=== PATIENT | male | born 1985 | race Caucasian/White ===

== ENCOUNTER → 2021-09-03 17:57 | Outpatient (CLI) | payer OTHER, SELFPAY ==
--- NOTE | 2021-09-03 18:04 | DI.RAD.S_ITS ---
PROCEDURE: XR ANKLE LT MIN 3V INDICATIONS: L ankle inversion injury, lateral edema, medial mal tender TECHNIQUE: 3 views of the ankle were acquired. COMPARISON: None. FINDINGS: Bones: No acute fractures or dislocations. Ankle mortise is normally aligned. No suspicious bony lesions. Tiny retrocalcaneal enthesophyte. Soft tissues: No tibiotalar joint effusion. Achilles tendon appears normal. Moderate lateral malleolar soft tissue swelling. IMPRESSION: Moderate lateral malleolar soft tissue swelling. No underlying fracture or dislocation. If there is persistent clinical concern for occult fracture given adequate mechanism of injury, consider repeat imaging in 10-14 days. Dictated by: Prasad Salinas M.D. on 09/03/2021 at 17:15 Approved by: Prasad Salinas M.D. on 09/03/2021 at 17:15
== END ==
PROVIDERS: Referring Provider Physician Assistant; Visit Provider Physician Assistant
DX: S99.912A Unspecified injury of left ankle, initial encounter (principal); M79.89 Other specified soft tissue disorders; X58.XXXA Exposure to other specified factors, initial encounter
CPT/HCPCS: 73610

== ENCOUNTER 2023-02-14 10:34 | Emergency (ER) | payer OTHER, SELFPAY ==
[2023-02-14 11:09] VITALS: BP 135/79; PULSE 80; RESP 14; TEMP 36.7; O2SAT 99; BMI 27.2
--- NOTE | 2023-02-14 11:18 | ED_ITS ---
HPI - Skin/Abscess/Foreign Bdy <Camilo Booth PA-C - Last Filed: 02/14/23 15:42> General Chief complaint: Skin/Abscess/Foreign Body Stated complaint: metal piece stuck inside finger, swelling Time Seen by Provider: 02/14/23 11:14 Source: patient Mode of arrival: Ambulatory Limitations: no limitations History of Present Illness HPI narrative: 37-year-old male with no reported past medical history presents to the ED with a wound to the right pointer finger for 1 month. Patient states that he felt a sharp poke when he was reaching between the seats in his car looking for something, felt like he was appears way sharp object. Since then patient states that the injury site has been painful, he has noted purulence and is painful. Patient is concerned that perhaps there is some retained piece of metal in his finger. Patient denies fever, chills, nausea, vomiting, numbness, tingling, weakness. Patient endorses full range of motion of all fingers. Last tetanus is unknown. Related Data Previous Rx's Medication Instructions Recorded cephalexin 500 mg capsule 500 mg PO TID 5 days #15 caps 02/14/23 Allergies Allergy/AdvReac Type Severity Reaction Status Date / Time No Known Drug Allergies Allergy Verified 02/14/23 11:12 Review of Systems <Camilo Booth PA-C - Last Filed: 02/14/23 15:42> Review of Systems ROS Unobtainable: All systems reviewed & are unremarkable except as noted in HPI and below Constitutional Constitutional: Denies chills, Denies fatigue, Denies fever(s), Denies frequent falls, Denies lethargy and Denies weakness Eyes Eyes: Denies change in vision, Denies eye discharge, Denies irritation and Denies loss of vision ENT Ears, Nose, Mouth, and Throat: Denies change in voice, Denies dizziness, Denies neck pain, Denies sore throat and Denies throat swelling Cardiovascular Cardiovascular: Denies chest pain, Denies irregular heart rhythm, Denies lightheadedness, Denies palpitations, Denies dyspnea, Denies dyspnea on exertion and Denies orthopnea Respiratory Respiratory: Denies cough, Denies dyspnea, Denies dyspnea on exertion and Denies wheezing Gastrointestinal Gastrointestinal: Denies abdominal pain, Denies change in bowel habits, Denies diarrhea, Denies nausea and Denies vomiting Genitourinary Genitourinary: Denies hematuria, Denies flank pain, Denies urinary incontinence and Denies urinary urgency Musculoskeletal Musculoskeletal: Denies back pain, Denies muscle weakness, Denies neck pain, Denies numbness and Denies tingling Integumentary/Breasts Skin/Breast: Denies pruritus, Denies erythema, Denies rash and Reports wounds Comments: Purulent discharge from the wound on right pointer finger Neurologic Neurologic: Denies behavioral changes, Denies confusion, Denies dizziness, Denies frequent falls, Denies loss of vision, Denies numbness, Denies tingling and Denies weakness Psychiatric Psychiatric: Denies anxiety, Denies behavioral changes, Denies confusion, Denies depression, Denies homicidal ideation and Denies suicidal ideation Endocrine Endocrine: Denies fatigue, Denies flushing and Denies palpitations Hematologic/Lymphatic Hematologic/Lymphatic: Denies easy bruising Allergic/Immunologic Allergic/Immunologic: Denies urticaria, Denies throat swelling and Denies wheezing Patient History <Camilo Booth PA-C - Last Filed: 02/14/23 15:42> Social History Smoking Status: Former smoker Smoking Status: Former smoker alcohol intake frequency: 3 or more drinks per day Substance Use Type: does not use Exam <Camilo Booth PA-C - Last Filed: 02/14/23 15:42> Narrative Exam Narrative: Const General:?cooperative, healthy appearing and comfortable [facility] Head:?normal to inspection Ears:?hearing grossly normal bilaterally Nose:?external nose normal Face and sinus:?normal facial exam and sinuses nontender Mouth:?oral mucosae normal Throat:?posterior oropharynx normal Eyes General:?appearance normal, both eyes and all related structures Neck Neck:?normal visual inspection and no lymphadenopathy noted Resp Effort & Inspection:?normal respiratory effort Auscultation:?clear to auscultation bilaterally Cardio Rate:?regular rate Rhythm:?regular rhythm Integumentary There is a small wound on the palmar aspect of the right pointer finger, with some induration and fluctuance. Tender to palpation. No erythema. Neuro General:?patient alert, patient awake and patient oriented x3 Initial Vital Signs Initial Vital Signs: Vital Signs Temperature 98.1 F 02/14/23 11:09 Pulse Rate 80 02/14/23 11:09 Respiratory Rate 14 02/14/23 11:09 Blood Pressure 135/79 02/14/23 11:09 Pulse Oximetry 99 02/14/23 11:09 Oxygen Delivery Method Room Air 02/14/23 11:09 <Araceli Kan DO - Last Filed: 02/16/23 07:31> Initial Vital Signs Initial Vital Signs: Vital Signs Temperature 98.1 F 02/14/23 11:09 Pulse Rate 80 02/14/23 11:09 Respiratory Rate 14 02/14/23 11:09 Blood Pressure 135/79 02/14/23 11:09 Pulse Oximetry 99 02/14/23 11:09 Oxygen Delivery Method Room Air 02/14/23 11:09 Procedures <Camilo Booth PA-C - Last Filed: 02/14/23 15:42> Abscess I/D I&D #1: Site: hand Side (if applicable): right Sedation/analgesia: none Local Anesthetic: other anesthetic (none) Technique: needle aspiration Amount of fluid expressed (mL): 0.1 Irrigation: No Packing used?: none Course <Camilo Booth PA-C - Last Filed: 02/14/23 15:42> Orders Ordered: Discontinued Medications Diphtheria/Tetanus/Acell Pertussis (Tet,Diph,Pertuss(Acell),Vac/Pf 0.5 Ml Syringe) 0.5 ml IM .ONCE ONE Stop: 02/14/23 11:25 Last Admin: 02/14/23 12:14 Dose: 0.5 ml Documented By: CTS Vital Signs Vital signs: Vital Signs - 8 hr 02/14/23 11:09 Temperature 98.1 F Pulse Rate 80 Respiratory Rate 14 Blood Pressure 135/79 Pulse Oximetry 99 Oxygen Delivery Method Room Air <Araceli Kan DO - Last Filed: 02/16/23 07:31> Orders Ordered: Discontinued Medications Diphtheria/Tetanus/Acell Pertussis (Tet,Diph,Pertuss(Acell),Vac/Pf 0.5 Ml Syringe) 0.5 ml IM .ONCE ONE Stop: 02/14/23 11:25 Last Admin: 02/14/23 12:14 Dose: 0.5 ml Documented By: CTS Vital Signs Vital signs: Vital Signs - 8 hr 02/14/23 11:09 Temperature 98.1 F Pulse Rate 80 Respiratory Rate 14 Blood Pressure 135/79 Pulse Oximetry 99 Oxygen Delivery Method Room Air MDM - Skin/Abscess/Foreign Bdy <Camilo Booth PA-C - Last Filed: 02/14/23 15:42> [facility] Narrative Medical decision making narrative: 37-year-old male with no reported past medical history presents to the ED with a wound to the right pointer finger for 1 month. Concern for retained foreign object versus cellulitis versus abscess versus other. Will obtain x-ray, update tetanus. Will reassess. X-ray with no radiopaque foreign bodies identified, no acute osseous abnormality. No purulence expressed via needle aspiration. A wound culture was obtained. Prescribed antibiotics. ED return precautions discussed with patient. Patient verbalized understanding. Medical records reviewed: Yes Discharge Plan Departure Patient Disposition: Home Clinical Impression: Cellulitis Instructions: DI for Cellulitis -- Adult Activity Restrictions/Additional Instructions: You were evaluated in the ED today for a finger wound. The x-ray did not show any retained foreign bodies. Discharge from your wound has been sent for wound culture and you are being started on an antibiotic. Please complete the full dose of antibiotics as prescribed. We will call you if the culture results require us to change your antibiotics. Your tetanus has also been updated today. Please return to the ED via worsening symptoms, fever, chills, nausea, vomiting. Prescriptions: New cephalexin 500 mg capsule 500 mg PO TID 5 Days Qty: 15 0RF Referrals: Miscellaneous,Doctor[facility] [Primary Care Provider] - Stand Alone Forms: Patient Portal/API <Araceli Kan DO - Last Filed: 02/16/23 07:31> Cosign ED Attending Miguel Attestation: I was immediately available in the department for consultation. Documentation has been reviewed.
--- NOTE | 2023-02-14 11:23 | DI.RAD.S_ITS ---
PROCEDURE: XR FINGER RT MIN 2V INDICATIONS: suspect metallic foreign body TECHNIQUE: AP hand, 2 views of the 3rd finger(s) acquired. COMPARISON: [facility], ASHANTI, AMRISELA LT, 04/21/2007, 14:03. FINDINGS: Bones: No fractures or dislocations. No suspicious bony lesions. Soft tissues: No suspicious soft tissue calcifications. IMPRESSION: No acute osseous abnormality. No radiopaque foreign bodies are identified. Dictated by: Raj Kirkpatrick M.D. on 02/14/2023 at 11:58 Approved by: Raj Kirkpatrick M.D. on 02/14/2023 at 11:59
[2023-02-14] MEDS: TET,DIPH,PERTUSS(ACELL),VAC/PF 0.5 ML SYRINGE IM (12:14)
--- NOTE | 2023-02-14 12:28 | PC.NURSE ---
No radio opacity found on XR. Hyma, PAC in room for US of R 2nd digit. tetanus updated at this visit. tolerating well.
== END 2023-02-14 12:41 | disposition home or self-care (01) ==
PROVIDERS: Emergency Provider Student in an Organized Health Care Education/Training Program
DX: L03.011 Cellulitis of right finger (principal); L02.511 Cutaneous abscess of right hand; Z23 Encounter for immunization
CPT/HCPCS: 10060; 73140; 87070; 87075; 87077; 87147; 87186; 87205; 90471; 99283; 90715

== ENCOUNTER 2024-02-20 18:27 | Emergency (ER) | payer OTHER, SELFPAY ==
[2024-02-20 18:42] VITALS: BP 135/77; PULSE 109; RESP 16; TEMP 35.9; O2SAT 96; BMI 29.4
[2024-02-20 19:13] LABS: Add Manual Diff / Slide Review NO; Basophils Absolute Auto 0 /uL (0-100); Basophils Percent Auto 0.3 % (0-2); Eosinophils Absolute Auto 0 /uL (0-450); Eosinophils Percent Auto 0.1 % (2-4); Hemoglobin 14.9 g/dL (13.5-17.5); Lymphocytes Absolute Auto 1200 /uL (1100-4500); Lymphocytes Percent Auto 9.8 % (25-40); Mean Corpuscular HGB Conc 33.9 % (30-36); Mean Corpuscular Hemoglobin 30.1 PG (26-34); Mean Corpuscular Volume 88.5 fL (80-100); Monocytes Absolute Auto 1100 /uL (0-900); Monocytes Percent Auto 8.9 % (3-14); Neutrophils Absolute Auto 10100 /uL (1500-7000); Neutrophils Percent Auto 80.9 % (50-75); Platelet Count 332 X10^3/uL (150-400); Red Blood Cell Count 4.97 X10^6/uL (4.5-5.9); Red Cell Distribution Width 13.7 % (11.6-14.8); White Blood Cell Count 12.5 X10^3/uL (4.5-11.0)
[2024-02-20 19:22] LABS: Alanine Aminotransferase 86 IU/L (<50); Albumin 4.8 g/dL (3.5-5.0); Albumin Globulin Ratio 1.5 (1.0-2.8); Alkaline Phosphatase 91 U/L (38-126); Aspartate Aminotransferase 63 IU/L (17-59); BUN Creatinine Ratio 13.8 (6-22); Bilirubin Total 0.7 mg/dL (0.2-1.3); Blood Urea Nitrogen 11 mg/dL (9-20); Calcium 9.1 mg/dL (8.4-10.2); Carbon Dioxide 22 mmol/L (22-32); Chloride 104 mmol/L (98-107); Estimated Glomerular Filt Rate > 60 mL/min (>60); Globulin 3.1 g/dL (1.7-4.1); Glucose 103 mg/dL (70-100); HEMOLYSIS 25 (0-50); Lipase 43 U/L (23-300); Sodium 138 mmol/L (137-145); Total Protein 7.9 g/dL (6.3-8.2)
[2024-02-20 20:16] LABS: Ammonia (NH3) < 9 umol/L (9-30)
[2024-02-20 20:36] VITALS: BP 130/75; PULSE 109; RESP 18; O2SAT 95
[2024-02-20 22:44] VITALS: PULSE 101; O2SAT 96
[2024-02-20 23:00] VITALS: PULSE 99; O2SAT 94
--- NOTE | 2024-02-20 23:11 | DI.CT.S_ITS ---
PROCEDURE: CT PELVIS W CON INDICATIONS: Perianal abscess suspected TECHNIQUE: After the administration of intravenous contrast, 5 mm thick sections acquired from the iliac crests to the symphysis. 5 mm coronal and sagittal reformats were acquired. For radiation dose reduction, the following was used: automated exposure control, adjustment of mA and/or kV according to patient size. COMPARISON: None. FINDINGS: Image quality: Diagnostic. PELVIS: Peritoneum and Bowel: Bowel loops demonstrate normal wall thickness and caliber. No free fluid or air. Stool ball in the rectum measuring 7 x 6.4 cm. Normal appendix. Pelvic Organs: No pelvic mass. Bladder: Normal wall thickness, accounting for underdistension. No perivesicular fat stranding. Pelvic Nodes: No enlarged lymph nodes. Miscellaneous: No inguinal hernias are seen. atherosclerotic vascular calcifications. Bones: No aggressive osseous abnormality. IMPRESSION: Stool ball in the rectum measuring 7 cm, recommend correlation for impaction. No perianal abscess is seen. Dictated by: Raj Kirkpatrick M.D. on 02/20/2024 at 23:35 Approved by: Raj Kirkpatrick M.D. on 02/20/2024 at 23:37
--- NOTE | 2024-02-20 23:16 | ED_ITS ---
HPI - Abdominal Pain General Chief Complaint: Abdominal Pain Stated Complaint: Constipated 2 days, severe abd pain Time Seen by Provider: 02/20/24 22:47 Source: patient Mode of arrival: Ambulatory History of Present Illness HPI narrative: This is a 38-year-old male here with 24 hours or rectal pain states he has not had bowel movement in 2 days. He has not typically have problems with constipation, there has been no rectal trauma not having abdominal pain fevers or vomiting. Pain does not seem to localize to particular area around rectum. No previous abdominal surgeries no history of inflammatory bowel disease. States that he is previously healthy does admit to 3-4 drinks a day and has had no prior abdominal or rectal surgeries. Said he is her on an enema at home without results. Related Data Previous Rx's Medication Instructions Recorded doxycycline hyclate 100 mg tablet 100 mg PO BID #20 tabs 02/18/23 hydrocortisone acetate 25 mg 25 mg OR BID #12 ea 02/20/24 rectal suppository (Anusol-HC) lactulose 10 gram/15 mL oral 10 g (15 mL) PO DAILY PRN 02/20/24 solution constipation #237 mL Allergies Allergy/AdvReac Type Severity Reaction Status Date / Time No Known Drug Allergies Allergy Verified 02/14/23 11:12 Patient History Social History Smoking Status: Former smoker Smoking Status: Former smoker alcohol intake frequency: 3 or more drinks per day Substance Use Type: does not use Exam Initial Vital Signs Initial Vital Signs: Vital Signs Temperature 96.7 F L 02/20/24 18:42 Pulse Rate 109 H 02/20/24 18:42 Respiratory Rate 16 02/20/24 18:42 Blood Pressure 135/77 02/20/24 18:42 Pulse Oximetry 96 02/20/24 18:42 Oxygen Delivery Method Room Air 02/20/24 18:42 Mild tachycardia noted he is afebrile Const Other: Appears older than his stated age, has alcohol on his breath Neck Other: Supple Resp Other: Normal respiratory effort Cardio Other: Heart sounds are normal tachycardic GI Other: Abdomen flat and soft normal bowel sounds abdomen is nontender. On rectal exam there is stool in the vault, does not seem to be particularly hurt a known hemorrhoid or anal fissure. Does report significant tenderness during the rectal exam. Course Orders Ordered: ED Orders 02/20/24 18:55 Complete Blood Count AUTO DIFF Stat Comprehensive Metabolic Panel Stat Lipase Stat 02/20/24 19:55 Ammonia (NH3) Stat 02/20/24 23:11 CT pelvis w con Stat Vital Signs Vital signs: Vital Signs - 8 hr 02/20/24 18:42 02/20/24 20:36 02/20/24 22:44 Temperature 96.7 F L Pulse Rate 109 H 109 H 101 H Respiratory Rate 16 18 Blood Pressure 135/77 130/75 Pulse Oximetry 96 95 96 Oxygen Delivery Method Room Air Room Air 02/20/24 23:00 Temperature Pulse Rate 99 H Respiratory Rate Blood Pressure Pulse Oximetry 94 Oxygen Delivery Method Room Air MDM - Abdominal Pain Lab Data Lab results narrative: CBC shows a mild leukocytosis, chemistries are unremarkable with a minimal and not clinically significant elevation in transaminases 02/20/24 18:55 02/20/24 18:55 Labs: Lab Results 02/20/24 02/20/24 Range/Units 18:55 19:55 WBC 12.5 H (4.5-11.0) X10^3/uL RBC 4.97 (4.5-5.9) X10^6/uL Hgb 14.9 (13.5-17.5) g/dL Hct 44.0 (41-53) % MCV 88.5 (80-100) fL MCH 30.1 (26-34) PG MCHC 33.9 (30-36) % RDW 13.7 (11.6-14.8) % Plt Count 332 (150-400) X10^3/uL Neut % (Auto) 80.9 H (50-75) % Lymph % (Auto) 9.8 L (25-40) % [place] % (Auto) 8.9 (3-14) % Eos % (Auto) 0.1 L (2-4) % Baso % (Auto) 0.3 (0-2) % Neut # (Auto) 81055 H (2658-7327) /uL Lymph # (Auto) 1200 (6388-4461) /uL [place] # (Auto) 1100 H (0-900) /uL Eos # (Auto) 0 (0-450) /uL Baso # (Auto) 0 (0-100) /uL Sodium 138 (137-145) mmol/L Potassium 4.0 (3.4-5.1) mmol/L Chloride 104 (98-107) mmol/L Carbon Dioxide 22 (22-32) mmol/L BUN 11 (9-20) mg/dL Creatinine 0.80 (0.66-1.25) mg/dL Estimated GFR > 60 (>60) mL/min BUN/Creatinine Ratio 13.8 (6-22) Glucose 103 H (70-100) mg/dL Calcium 9.1 (8.4-10.2) mg/dL Total Bilirubin 0.7 (0.2-1.3) mg/dL AST 63 H (17-59) IU/L ALT 86 H (<50) IU/L Alkaline Phosphatase 91 (38-126) U/L Ammonia < 9 L (9-30) umol/L Total Protein 7.9 (6.3-8.2) g/dL Albumin 4.8 (3.5-5.0) g/dL Globulin 3.1 (1.7-4.1) g/dL Albumin/Globulin Ratio 1.5 (1.0-2.8) Lipase 43 (23-300) U/L ABG Data Interpretation: Independent review CT of the pelvis, stool in the rectal vault, no perianal or perirectal abscess Imaging Data CT scan - abdomen/pelvis: Radiologist's Impression: [place] [address] CT Scan Report Signed Patient: Stanton Nicholas MR#: [id number] : 1985 Acct:[id number] Age/Sex: 38 / M Date of Service: 02/20/24 Loc: ED Accession Number: [id number] Procedure: CT pelvis w con Ordering Provider: Patrick Maya MD PROCEDURE: CT PELVIS W CON INDICATIONS: Perianal abscess suspected TECHNIQUE: After the administration of intravenous contrast, 5 mm thick sections acquired from the iliac crests to the symphysis. 5 mm coronal and sagittal reformats were acquired. For radiation dose reduction, the following was used: automated exposure control, adjustment of mA and/or kV according to patient size. COMPARISON: None. FINDINGS: Image quality: Diagnostic. PELVIS: Peritoneum and Bowel: Bowel loops demonstrate normal wall thickness and caliber. No free fluid or air. Stool ball in the rectum measuring 7 x 6.4 cm. Normal appendix. Pelvic Organs: No pelvic mass. Bladder: Normal wall thickness, accounting for underdistension. No perivesicular fat stranding. Pelvic Nodes: No enlarged lymph nodes. Miscellaneous: No inguinal hernias are seen. atherosclerotic vascular calcifications. Bones: No aggressive osseous abnormality. IMPRESSION: Stool ball in the rectum measuring 7 cm, recommend correlation for impaction. No perianal abscess is seen. Dictated by: Raj Kirkpatrick M.D. on 02/20/2024 at 23:35 Approved by: Raj Kirkpatrick M.D. on 02/20/2024 at 23:37 MDM Narrative Medical decision making narrative: 38-year-old male presenting with rectal pain. Has significant tenderness there, differential includes constipation/fecal impaction, perianal abscess rectal trauma anal fissure. Berg is not seen on exam with a hemorrhoid. On rectal exam he is significant tenderness he has soft stool which I believe he should be able to pass. I have ordered an enema and prescribed lactulose as well as Anusol HC suppositories. Discharge Plan Departure Patient Disposition: Home Clinical Impression: Acute constipation Activity Restrictions/Additional Instructions: We are seeing today for constipation. I have written a prescription for lactulose week you can use daily until your stooling regularly. For your anal irritation I have written a prescription for Anusol HC suppositories, apply these twice daily until your anal pain subsides. Get adequate fluids and fiber in your diet to keep her bowels regular. Metamucil is a good fiber supplement that you can use. Additionally, gentle cleansing after bowel movement can be helpful. If you are having increasing pain fevers or vomiting recheck in the emergency department. Follow up soon with your primary care provider Prescriptions: New lactulose 10 gram/15 mL solution 10 g PO DAILY PRN (Reason: constipation) Qty: 237 0RF hydrocortisone acetate [Anusol-HC] 25 mg suppository 25 mg OR BID Qty: 12 0RF No Action doxycycline hyclate 100 mg tablet 100 mg PO BID Qty: 20 0RF Referrals: Barbie Phillips MD [Primary Care Provider] - Stand Alone Forms: Patient Portal/API
[2024-02-20 23:30] VITALS: PULSE 100; O2SAT 96
[2024-02-21] VITALS (7 sets, daily range): BP systolic 118–124; BP diastolic 56–75; PULSE 85–106; O2SAT 94–97
== END 2024-02-21 01:14 | disposition home or self-care (01) ==
PROVIDERS: Emergency Medicine; Emergency Provider Emergency Medicine; PCP Family Medicine
DX: K59.00 Constipation, unspecified (principal)
CPT/HCPCS: 36415; 72193; 80053; 82140; 83690; 85025; 99284

== ENCOUNTER → 2024-08-16 11:34 | Outpatient (CLI) | payer OTHER, SELFPAY | PROVIDERS: PCP Family Medicine; Visit Provider Nurse Practitioner Family | DX: J02.9 Acute pharyngitis, unspecified (principal) | CPT/HCPCS: 87070 ==

== ENCOUNTER → 2024-10-01 10:49 | Outpatient (CLI) | payer OTHER, SELFPAY ==
[2024-10-01 11:18] LABS: Add Manual Diff / Slide Review NO; Basophils Absolute Auto 0 /uL (0-100); Basophils Percent Auto 0.6 % (0-2); Eosinophils Absolute Auto 100 /uL (0-450); Eosinophils Percent Auto 1.8 % (2-4); Hematocrit 46.5 % (41-53); Hemoglobin 16.2 g/dL (13.5-17.5); Lymphocytes Absolute Auto 1400 /uL (1100-4500); Lymphocytes Percent Auto 18.2 % (25-40); Mean Corpuscular HGB Conc 34.8 % (30-36); Mean Corpuscular Hemoglobin 30.3 PG (26-34); Mean Corpuscular Volume 87.2 fL (80-100); Monocytes Absolute Auto 700 /uL (0-900); Neutrophils Absolute Auto 5200 /uL (1500-7000); Neutrophils Percent Auto 69.4 % (50-75); Platelet Count 295 X10^3/uL (150-400); Red Blood Cell Count 5.34 X10^6/uL (4.5-5.9); White Blood Cell Count 7.4 X10^3/uL (4.5-11.0)
[2024-10-01 11:58] LABS: Alanine Aminotransferase 117 IU/L (<50); Albumin 5.1 g/dL (3.5-5.0); Albumin Globulin Ratio 1.5 (1.0-2.8); Alkaline Phosphatase 79 U/L (38-126); Aspartate Aminotransferase 74 IU/L (17-59); BUN Creatinine Ratio 15.5 (6-22); Blood Urea Nitrogen 13 mg/dL (9-20); Calcium 9.8 mg/dL (8.4-10.2); Carbon Dioxide 23 mmol/L (22-32); Chloride 105 mmol/L (98-107); Cholesterol 262 mg/dL (140-199); Estimated Glomerular Filt Rate > 60 mL/min (>60); Globulin 3.3 g/dL (1.7-4.1); Glucose 130 mg/dL (70-100); HDL Cholesterol 70 mg/dL (40-60); HEMOLYSIS < 15 (0-50); LDL Cholesterol Calculated 154 mg/dL (<100); Potassium 4.7 mmol/L (3.4-5.1); Sodium 141 mmol/L (137-145); Total Protein 8.4 g/dL (6.3-8.2); Triglycerides 191 mg/dL (35-150)
[2024-10-01 12:43] LABS: Urine Chlamydia NOT DETECTED; Urine N gonorrhoeae NOT DETECTED
[2024-10-01 23:07] LABS: PSA Ultrasensitive 0.882 ng/mL (0.000-4.000)
[2024-10-02 06:36] LABS: RPR Screen Non Reactive (Non Reactive)
[2024-10-02 12:26] LABS: Hepatitis B Surface Antigen NEGATIVE s/c (NEGATIVE)
[2024-10-02 12:37] LABS: HIV 1 & 2 Ab/Ag 4th Gen Combo NEGATIVE (NEGATIVE); Hep C Virus Ab w/Reflex Quant NEGATIVE s/c (NEGATIVE)
== END ==
PROVIDERS: PCP Nurse Practitioner Family; Referring Provider Nurse Practitioner Family; Visit Provider Nurse Practitioner Family
DX: Z11.3 Encounter for screening for infections with a predominantly sexual mode of transmission (principal); Z12.5 Encounter for screening for malignant neoplasm of prostate; C61 Malignant neoplasm of prostate
CPT/HCPCS: 36415; 80053; 80061; 84153; 85025; 86592; 86803; 87340; 87389; 87491; 87591